=== PATIENT | male | born 2005 | race African-American/Black ===

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

== ENCOUNTER 2025-03-02 10:02 | Emergency (ER) | payer OTHER, SELFPAY ==
--- OUTSIDE RECORDS SUMMARY | 2025-03-02 10:06 | XMS_ITS | Clinical Summary ---
Author Organization [facility] [employer] Address [address] [place] [address] Care Team Providers Care Guide Winder Name Role Phone BrianamandaTyron short Primary Care Provider Source Comments [facility] [employer],non-owned Affiliates and Associated Physician Practices is amultiple site organization consisting of ambulatory clinics and hospital sitesin [place], [place], [place] and [place]. This disclosure is being madepursuant to the Care Everywhere program and may not contain all information available regarding this patient. Last updated 18.[employer] Allergies No known active allergies Medications * Be aware that medications may not be up to date on this document. Alwaysverify current medications with the patient. Other Mom unsure but last dose at 1400 Active fluticasone hfa 110 (FLOVENT HFA 110) 110 MCG/ACT inhaler Inhale 1 Puff by mouth 2 times daily. 1 Inhaler 5 3 Active Additional Information Patient not taking.Reported on 04/15/2020 albuterol (PROVENTIL;VENT BEBA) (5 MG/ML) 0.5% nebulizer solution Inhale 2.5 mg by mouth 4 times daily as needed for Shortness of Breath or Wheezing Active albuterol HFA (PROVENTIL;VENT BEBA;PROAIR) 108 (90 Base) MCG/ACT inhaler Inhale 2 puffs by mouth every 4 hours as needed for Wheezing or Cough OK TO SUBSTITUTE ANY BRAND. 1 Inhaler 0 Active Active Problems No known active problems Immunizations Immunization Administration Dates Next Due CovRegisterPatient primary Monoval ent 12+ yr 0.3ml 03/27/2022 DTP 04/02/2011, 7,2005,2005,2005 HEP A PEDS 2 DOSE 02/09/2008,06/18/2007 HEP B VACCINE, PED/ADOL 2005,2005, HIB-PRP-T 4 DOSE 12/23/2006, 6,2005,2004 Human Papilloma Virus [place] lent Vaccine 04/15/2020 INFLUENZA VACCINE 05/17/2016,08/04/2008,09/18/19 07 MENINGOCOCAL MENINGITIS 04/25/2017 MMR 04/02/2011,09/18/2006 POLIO IPV 04/02/2011, 6,2005,2004 Pneumococcal Pcv13 Conj 12/18/2015,09/18,2005,2004 TDAP (7yrs+) 04/24/2016 VARICELLA 04/02/2011,06/27/2006 Family History Medical History Relation Name Comments Eczema Father CAD (Coronary Artery Disease) Maternal Grandfather Hypertension Maternal Grandfather Hypertension Maternal Grandmother Eczema Mother High Cholesterol Paternal Grandmother Hypertension Paternal Grandmother Relation Name Status Comments Father Maternal Grandfather Maternal Grandmother Mother Paternal Grandmother Social History Tobacco Use Types Packs/Day Years Used Date Smoking Tobacco: Never Smokeless Tobacco: Never Tobacco Cessation:Counseling Given: No Alcohol Use Standard Drinks/Week Comments No 0 (1 standard drink = 0.6 oz pur e alcohol) Sex and Gender Information Value Date Recorded Sex Assigned at Not on file Legal Sex Male 5:59 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 Gender Identity Not on file Sexual Orientation Not on file Last Filed Vital Signs Vital Sign Reading Time Taken Comments Blood Pressure 100/62 04/19/2021 6:49 PM CDT Pulse 83 04/19/2021 6:49 PM CDT Temperature 36.8 C (98.2 F) 04/19/2021 6:49 PM CDT Respiratory Rate 17 04/19/2021 6:49 PM CDT Oxygen Saturation 99% 08/15/2017 6:47 PM CERTIFIED PHARMACY TECH Inhaled Oxygen Concentration - - Weight 79.4 kg (175 lb) 04/19/2021 6:49 PM CDT Height 172.7 cm (5' 8) 04/19/2021 6:49 PM CDT Body Mass Index 26.61 04/19/2021 6:49 PM CDT Body Mass Index Percentile 93.56% 04/19/2021 6:4 9 PM CDT Growth Chart: [facility] (Boys, 2-2 0 Years) Plan of Treatment Health Maintenance Due Date Last Done Comments HIV SCREENING 2020 HPV VACCINE (2 - Male 2-dose series) 10/16/2020 04/15/2020 MENINGOCOCCAL (Group B) VACCINE SHARED DECISION-MAKING (1 of 2 - Standard) 2021 HEPATITIS C SCREENING 06/12/2023 COVID-19 VACCINE (2 - season) 2024 03/27/2022 DEPRESSION SCREENING 08/26/2024 INFLUENZA VACCINE (Season Ended) 2025 05/17/2016, 08/04/2008, 09/18/2006 DTAP/TDAP/TD VACCINES (7 - Td or Tdap) 04/24/2026 04/24/2016, 04/02/2011, 12/23/2006, Additional history exists ZOSTER VACCINE (1 of 2) 2055 HEPATITIS B VACCINE Completed 2005, 2005, 2005 HIB VACCINE Completed 12/23/2006, 11/25, 2005, Additional history exists PNEUMOCOCCAL VACCINE Completed 12/18/2015, 09/18/2006, 2005, Additional history exists MENINGOCOCCAL GROUPS A/C/Y/W VACCINE Aged Out 04/25/2017 No longer eligible based on patient's age to complete this topic Insurance [facility] MEDICAID Care Teams Guide Winder Relationship Specialty Start Date End Date Tyron Dumont DO PCP - General Pediatrics 04/15/20
[2025-03-02 10:07] VITALS: BP 164/91; PULSE 99; RESP 15; TEMP 36.4; O2SAT 99
--- NOTE | 2025-03-02 10:43 | ED_ITS ---
HPI - Skin/Abscess/Foreign Bdy General Chief complaint: Skin/Abscess/Foreign Body Stated complaint: hives Time Seen by Provider: 03/02/25 10:28 Source: patient Mode of arrival: ambulatory Limitations: no limitations History of Present Illness HPI narrative: This is a 19 year old male that presents to the ER for hives. Started last night. Reports rash on the legs and abdomen. He also had some diarrhea yesterday. No known exposures. He took Benadryl prior to arrival with some relief in itchiness. Denies dysphagia, dyspnea, swelling of the mouth or tongue. Related Data Allergies Allergy/AdvReac Type Severity Reaction Status Date / Time No Known Allergies Allergy Unknown Verified 03/02/25 10:07 Review of Systems Review of Systems: All systems reviewed & are unremarkable except as noted in HPI and below PMFSH Past Medical History Medical History (Updated 03/02/25 @ 13:15 by Vashti Mars PA-C) History of asthma Exam Narrative: GENERAL: Well-appearing, well-nourished, and in no acute distress. HEAD: Normocephalic, atraumatic. EYES: EOMI. ENT: Nares clear, no rhinorrhea or epistaxis. Mucous membranes moist. Oropharynx without tonsillar hypertrophy exudate or other lesions. CHEST: Clear to auscultation. No respiratory distress. No wheezes rales or rhonchi HEART: Regular rate and rhythm. No murmur heard. Normal peripheral pulses. ABDOMEN: Soft, nontender, nondistended, normal active bowel sounds. EXTREMITIES: Normal range of motion. No edema. SKIN: Warm, dry. Hives on the trunk and proximal extremities NEURO: No focal deficits. Alert and oriented x3. PSYCH: Normal mood and affect Course Course Emergency Course: Patient feels much better at this time Vital Signs Vital signs: Vital Signs Temperature 97.5 F L 03/02/25 10:07 Pulse Rate 99 03/02/25 10:07 Respiratory Rate 15 03/02/25 10:07 Blood Pressure 164/91 H 03/02/25 10:07 Pulse Oximetry 99 03/02/25 10:07 Oxygen Delivery Room Air 03/02/25 10:07 Temperature 97.5 F L 03/02/25 10:07 Pulse Rate 71 03/02/25 12:54 Respiratory Rate 16 03/02/25 12:54 Blood Pressure 137/81 03/02/25 12:54 Pulse Oximetry 99 03/02/25 12:54 Oxygen Delivery Room Air 03/02/25 10:07 MDM - Skin/Abscess/Foreign Bdy MDM Narrative Medical decision making narrative: Patient presents to the emergency department for hives, ongoing since last night. Denies any dysphagia, dyspnea, no notable facial/mouth/throat swelling. Patient with improvement after Pepcid, Solu-Medrol. He had taken Benadryl prior to arrival. Instructed on continued used use of histamines. He is to follow up with PCP. He was given warnings to return to the ER Differential Diagnosis Differential diagnosis: Likely viral exanthem, urticaria, allergic reaction to drug and eczema Critical Care Time Critical Care Time Critical Care Time: No Discharge Plan Discharge Clinical Impression: Hives Patient Disposition: Home Condition: Improved Instructions: Urticaria (ED) Additional Instructions: Return to the emergency department if you experience fever, redness and swelling of your wounds, abnormal drainage from your wounds, or any other symptoms that are concerning to you Take a Pepcid and Zyrtec daily. Benadryl as needed for severe itching Follow-up with primary care doctor Patient Language: Citizen Of [place] Prescriptions: No Action ondansetron 4 mg tablet,disintegrating 4 mg PO Q6H PRN (Reason: nausea and vomiting) Qty: 6 0RF albuterol sulfate 90 mcg/actuation HFA aerosol inhaler 1 inh inhalation QID PRN (Reason: shortness of breath or wheezing) Qty: 6.7 0RF prednisone 20 mg tablet 40 mg PO DAILY Qty: 10 0RF ondansetron 4 mg tablet,disintegrating 4 mg PO Q8H PRN (Reason: nausea and vomiting) Qty: 10 0RF Follow-up/Referrals: PHYSICIAN,COMMERCIAL CONSTRUCTION ESTIMATOR [Primary Care Provider] - James Tate MD [Physician] -
--- OUTSIDE RECORDS SUMMARY | 2025-03-02 10:44 | XMS_ITS | Clinical Summary ---
Author Organization [facility] Address [address] [place] [address] Care Team Providers Care Truck Driver Heavy Name Role Phone BrianamandaTyron short Primary Care Provider Source Comments [facility],non-owned Affiliates and Associated Physician Practices is amultiple site organization consisting of ambulatory clinics and hospital sitesin [place], [place], [place] and [place]. This disclosure is being madepursuant to the Care Everywhere program and may not contain all information available regarding this patient. 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 Gender Identity Not on file Sexual Orientation Not on file Last Filed Vital Signs Vital Sign Reading Time Taken Comments Blood Pressure 100/62 04/19/2021 6:49 PM CDT Pulse 83 04/19/2021 6:49 PM CDT Temperature 36.8 C (98.2 F) 04/19/2021 6:49 PM CDT Respiratory Rate 17 04/19/2021 6:49 PM CDT Oxygen Saturation 99% 08/15/2017 6:47 PM SENIOR PUBLICATIONS SPECIALIST Inhaled Oxygen Concentration - - Weight 79.4 kg (175 lb) 04/19/2021 6:49 PM CDT Height 172.7 cm (5' 8) 04/19/2021 6:49 PM CDT Body Mass Index 26.61 04/19/2021 6:49 PM CDT Body Mass Index Percentile 93.56% 04/19/2021 6:4 9 PM CDT Growth Chart: [facility] (Boys, 2-2 0 Years) Plan of Treatment [...] patient's age to complete this topic Insurance [facility] MEDICAID Care Teams Truck Driver Heavy Relationship Specialty Start Date End Date Tyron Dumont DO PCP - General Pediatrics 04/15/20
[2025-03-02 11:24] VITALS: BP 124/68; PULSE 80; RESP 16; O2SAT 100
[2025-03-02] MEDS: FAMOTIDINE 20 MG/2 ML VIAL IV PUSH (11:31)
[2025-03-02] MEDS: DICYCLOMINE HCL INJ 20 MG/2 ML VIAL IM (12:53)
[2025-03-02 12:54] VITALS: BP 137/81; PULSE 71; RESP 16; O2SAT 99
[2025-03-02 13:24] VITALS: BP 128/60; PULSE 61; RESP 18; TEMP 36.7; O2SAT 98
== END 2025-03-02 13:25 | disposition home or self-care (01) ==
PROVIDERS: Emergency Provider Physician Assistant
DX: L50.9 Urticaria, unspecified (principal); J45.909 Unspecified asthma, uncomplicated
CPT/HCPCS: 96372; 96374; 96375; 99284; J0500; J2919

== ENCOUNTER 2025-03-05 16:17 | Emergency (ER) | payer OTHER, SELFPAY ==
--- OUTSIDE RECORDS SUMMARY | 2025-03-05 16:19 | XMS_ITS | Clinical Summary ---
Author Organization [facility] [employer] Address [address] [place] [address] Care Team Providers Care Flight Kitchen Manager Name Role Phone BrianamandaTyron short Primary Care Provider Source Comments [facility] [employer]non-owned Affiliates and Associated Physician Practices is amultiple site organization consisting of ambulatory clinics and hospital sitesin [place], [place] and [place]. This disclosure is being madepursuant to the Care Everywhere program and may not contain all information available regarding this patient. Last updated 18.[employer] 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 Gender Identity Not on file Sexual Orientation Not on file Last Filed Vital Signs Vital Sign Reading Time Taken Comments Blood Pressure 100/62 04/19/2021 6:49 PM CDT Pulse 83 04/19/2021 6:49 PM CDT Temperature 36.8 C (98.2 F) 04/19/2021 6:49 PM CDT Respiratory Rate 17 04/19/2021 6:49 PM CDT Oxygen Saturation 99% 08/15/2017 6:47 PM BOBBIN PAINTER Inhaled Oxygen Concentration - - Weight 79.4 kg (175 lb) 04/19/2021 6:49 PM CDT Height 172.7 cm (5' 8) 04/19/2021 6:49 PM CDT Body Mass Index 26.61 04/19/2021 6:49 PM CDT Body Mass Index Percentile 93.56% 04/19/2021 6:4 9 PM CDT Growth Chart: [facility] (Boys, 2-2 0 Years) Plan of Treatment Health Maintenance Due Date Last Done Comments HIV SCREENING 2020 HPV VACCINE (2 - Male 2-dose series) 10/16/2020 04/15/2020 MENINGOCOCCAL (Group B) VACCINE SHARED DECISION-MAKING (1 of 2 - Standard) 2021 HEPATITIS C SCREENING 06/12/2023 COVID-19 VACCINE (2 - season) 2024 03/27/2022 DEPRESSION SCREENING 08/26/2024 INFLUENZA VACCINE (#1) 2025 6, 08/04/2008, 09/18/2006 DTAP/TDAP/TD VACCINES (7 - Td [...] patient's age to complete this topic Insurance [facility] MEDICAID Care Teams Flight Kitchen Manager Relationship Specialty Start Date End Date Tyron Dumont DO PCP - General Pediatrics 04/15/20
[2025-03-05 16:20] VITALS: BP 167/113; PULSE 113; RESP 16; TEMP 36.4; O2SAT 97
--- NOTE | 2025-03-05 18:52 | PC.NURSE ---
Patient not found in lobby when called for 2 hour VS or for MSE.
--- OUTSIDE RECORDS SUMMARY | 2025-03-05 19:17 | XMS_ITS | Clinical Summary ---
Author Organization [facility] [employer] Address [address] [place] [address] Care Team Providers Care Regulatory Associate Name Role Phone BrianamandaTyron short Primary Care Provider Source Comments [facility] [employer],non-owned Affiliates and Associated Physician Practices is amultiple site organization consisting of ambulatory clinics and hospital sitesin [place], [place], [place] and [place]. This disclosure is being madepursuant to the Care Everywhere program and may not contain all information available regarding this patient. 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 Gender Identity Not on file Sexual Orientation Not on file Last Filed Vital Signs Vital Sign Reading Time Taken Comments Blood Pressure 100/62 04/19/2021 6:49 PM CDT Pulse 83 04/19/2021 6:49 PM CDT Temperature 36.8 C (98.2 F) 04/19/2021 6:49 PM CDT Respiratory Rate 17 04/19/2021 6:49 PM CDT Oxygen Saturation 99% 08/15/2017 6:47 PM OFFICE MANAGER Inhaled Oxygen Concentration - - Weight 79.4 kg (175 lb) 04/19/2021 6:49 PM CDT Height 172.7 cm (5' 8) 04/19/2021 6:49 PM CDT Body Mass Index 26.61 04/19/2021 6:49 PM CDT Body Mass Index Percentile 93.56% 04/19/2021 6:4 9 PM CDT Growth Chart: [facility] (Boys, 2-2 0 Years) Plan of Treatment [...] patient's age to complete this topic Insurance [facility] MEDICAID Care Teams Regulatory Associate Relationship Specialty Start Date End Date Tyrno Dumont DO PCP - General Pediatrics 04/15/20
== END 2025-03-05 18:52 | disposition left against medical advice (07) ==
LOC: ANHED 19:16
DX: R06.02 Shortness of breath (principal)
CPT/HCPCS: 99199

== ENCOUNTER 2025-03-07 11:10 | Emergency (ER) | payer OTHER, SELFPAY ==
--- NOTE | ~2025-03-07 | XR_ITS ---
Supine portable views of the abdomen Clinical history: Abdominal pain Findings: Single mildly dilated loop of small bowel present in the left lower quadrant, nonspecific. No evidence for obstruction or free air. No abnormal mass lesion or calcification is seen. Osseous st ructures are intact. Impression: Nonspecific bowel gas pattern overall, with single mildly dilated loop of small bowel in the left low er quadrant. Consider CT for further evaluation as indicated. Reviewed, dictated and finalized at location M. Impression: Nonspecific bowel gas pattern overall, with single mildly dilated loop of small bowel in the left lower quadrant. Consider CT for further evaluation as indica brooke.
--- NOTE | ~2025-03-07 | CT_ITS ---
CT abdomen pelvis w con Ordering provider: Zackery Martinez MD History: 19 years Male with . left sided abdominal pain . Comparison: October 23, 2023 Technique: CT abdomen and pelvis with IV and without oral contrast. Automated exposure control and it erative reconstruction technique were employed. The dose-length product was 482.20 mGy-cm. Findings: VISUALIZED LOWER CHEST: Left basilar atelectasis with trace of effusion. UPPER ABDOMINAL ORGANS: Liver: Normal. Gallbladder: Normal. Spleen: Multiple hypodensities in the spleen which are most likely infarcts versus posttraumatic trau matic hematomas. Clinical correlation advised.. Cysts , infection and metastatic lesions are less lik kobe. Stomach/duodenum: Normal. Pancreas: Normal. Adrenals: Normal. Kidneys: Normal. PELVIC ORGANS: The bladder is underfilled with slightly thickened wall. Evaluation for cystitis advis ed. BOWEL AND MESENTERY: Colon: No evidence of diverticulitis. Fluid is seen in the colon. Normal appendix. Small Bowel: Fluid seen in the distal small bowel. No obstruction. Peritoneum/mesentery: No free air or free fluid. No mesenteric lymphadenopathy. Lymph nodes are seen with the largest on the right side measures 3.5 cm and on the left 3.8 cm. RETROPERITONEUM: Normal aorta. No retroperitoneal lymphadenopathy. MUSCULOSKELETAL: Superficial soft tissues: Inguinal enlarged lymph nodes are seen with the largest on the right side m easures 2.6 cm and on the left measures 1.7 cm. Otherwise, The superficial soft tissues are normal. Bones: Age appropriate degenerative changes of the spine. IMPRESSION: 1. Multiple hypodensities in the spleen which are most likely infarcts. Other differential include i nfection, metastases, posttraumatic traumatic hematomas and metastatic lesions. Clinical correlation and follow-up advised. 2. Fluid in the large and distal small bowel which may indicate diarrhea. 3. No evidence of appendicitis, diverticulitis or intestinal obstruction. 4. Bilateral inguinal and iliac lymphadenopathy. Reviewed, dictated and finalized at location A. IMPRESSION: 1. Multiple hypodensities in the spleen which are most likely infarcts. Other differential include infection, metastases, posttraumatic traumatic hematomas a nd metastatic lesions. Clinical correlation and follow-up advised. 2. Fluid in the large and distal small bowel which may indicate diarrhea. 3. No evidence of appendicitis, diverticulitis or intestinal obstruction. 4. Bilateral inguinal and iliac lymphadenopathy.
[2025-03-07 11:13] VITALS: BP 138/69; PULSE 114; RESP 18; TEMP 36.4; O2SAT 98
--- OUTSIDE RECORDS SUMMARY | 2025-03-07 11:13 | XMS_ITS | Clinical Summary ---
Author Organization [facility] [employer] Address [address] [place] [address] Care Team Providers Care Wing Mailer Machine Operator Name Role Phone BrianamandaTyron short Primary Care Provider Source Comments [facility] [employer],non-owned Affiliates and Associated Physician Practices is amultiple site organization consisting of ambulatory clinics and hospital sitesin [place], [place], [place] and [place]. This disclosure is being madepursuant to the Care Everywhere program and may not contain all information available regarding this patient. 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 Gender Identity Not on file Sexual Orientation Not on file Last Filed Vital Signs Vital Sign Reading Time Taken Comments Blood Pressure 100/62 04/19/2021 6:49 PM CDT Pulse 83 04/19/2021 6:49 PM CDT Temperature 36.8 C (98.2 F) 04/19/2021 6:49 PM CDT Respiratory Rate 17 04/19/2021 6:49 PM CDT Oxygen Saturation 99% 08/15/2017 6:47 PM DIRECTOR PRODUCT SAFETY Inhaled Oxygen Concentration - - Weight 79.4 [...] patient's age to complete this topic Insurance [facility] MEDICAID Care Teams Wing Mailer Machine Operator Relationship Specialty Start Date End Date Tyron Dumont DO PCP - General Pediatrics 04/15/20
[2025-03-07 13:05] VITALS: BP 138/80; PULSE 102; RESP 15; TEMP 36.9; O2SAT 99
[2025-03-07 13:22] VITALS: BP 129/73; PULSE 99; RESP 14; O2SAT 99
--- OUTSIDE RECORDS SUMMARY | 2025-03-07 13:28 | XMS_ITS | Clinical Summary ---
Author Organization [facility] [employer] Address [address] [place] [address] Care Team Providers Care Branch Operation Evaluation Manager Name Role Phone BrianamandaTyron short Primary Care Provider Source Comments [facility] [employer],non-owned Affiliates and Associated Physician Practices is amultiple site organization consisting of ambulatory clinics and hospital sitesin [place], [place], [place] and [place]. This disclosure is being madepursuant to the Care Everywhere program and may not contain all information available regarding this patient. Last updated [email or web address] Allergies No known active allergies Medications * [...] problems Immunizations Immunization Administration Dates Next Due [employer] 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 Gender Identity Not on file Sexual Orientation Not on file Last Filed Vital Signs Vital Sign Reading Time Taken Comments Blood Pressure 100/62 04/19/2021 6:49 PM CDT Pulse 83 04/19/2021 6:49 PM CDT Temperature 36.8 C (98.2 F) 04/19/2021 6:49 PM CDT Respiratory Rate 17 04/19/2021 6:49 PM CDT Oxygen Saturation 99% 08/15/2017 6:47 PM ACCOUNTING CLERKS SUPERVISOR Inhaled Oxygen Concentration - - Weight 79.4 kg (175 lb) 04/19/2021 6:49 PM CDT Height 172.7 cm (5' 8) 04/19/2021 6:49 PM CDT Body Mass Index 26.61 04/19/2021 6:49 PM CDT Body Mass Index Percentile 93.56% 04/19/2021 6:4 9 PM CDT Growth Chart: [facility] (Boys, 2-2 0 Years) Plan of Treatment [...] patient's age to complete this topic Insurance [facility] MEDICAID Care Teams Branch Operation Evaluation Manager Relationship Specialty Start Date End Date Tyron Dumont DO PCP - General Pediatrics 04/15/20
[2025-03-07 13:34] LABS: Hematocrit 45.6 % (42.0-52.0); Hemoglobin 15.8 g/dL (14.0-18.0); Immature Granulocyte Percent A 1.7 % (0-0.5); Lymphocytes Absolute Auto 6.74 K/mm3 (0.9-3.2); Mean Corpuscular HGB Conc 34.6 g/dl (32-36); Mean Corpuscular Hemoglobin 27.5 pg (26-34); Mean Corpuscular Volume 79.4 fl (80-100); Nucleated Red Blood Cells Absolute Auto 0.000 K/mm3 (0.0-0.012); Nucleated Red Blood Cells Perc 0.0 % (0.0-0.2); Platelet Count Result 278 k/mm3 (150-375); Red Blood Count 5.74 M/mm3 (4.6-6.20); White Blood Count 13.3 K/mm3 (4.5-10.0)
[2025-03-07] MEDS: SODIUM CHLORIDE 0.9% IV 1,000 ML 999 ML IV CONT (13:34)
[2025-03-07] MEDS: ONDANSETRON INJ 4 MG/2 ML VIAL IV PUSH (13:34)
[2025-03-07 13:42] LABS: Alanine Aminotransferase 37 U/L (6-50); Albumin Level 4.4 g/dL (3.7-5.6); Alkaline Phosphatase 62 U/L (58-237); Anion Gap 10 mmol/L (4-12); Aspartate Amino Transferase 46 U/L (17-59); Bilirubin,Total 1.3 mg/dL (0.2-1.3); Blood Urea Nitrogen 11 mg/dL (8-21); Calcium 8.9 mg/dL (8.9-10.7); Carbon Dioxide 29 mmol/L (22-30); Chloride 97 mmol/L (98-107); Estimated CRCL calculation 107 ml/min; Estimated Glomerular Filt Rate > 60; Glucose 110 mg/dL (65-110); Lipase 58 U/L (23-300); Potassium 4.0 mmol/L (3.4-5.0); Sodium 136 mmol/L (134-143); Total Protein 8.8 g/dL (6.3-8.6)
[2025-03-07 13:57] LABS: Add Urine Microscopic? YES; Appearance Urine Clear (Clear); Glucose Urine UA Negative (Negative); Leukocyte Esterase Ur 1+ LEU/UL (Negative); Need Manual Microscopic Reviewed; Nitrate Urine Negative (Negative); Non Pathogenic Casts 0-2; Specific Grav Ur 1.024 (1.001-1.035)
[2025-03-07 13:58] LABS: Schistocytes None Seen
--- NOTE | 2025-03-07 14:42 | ED_ITS ---
HPI - General Adult General Chief complaint: Abdominal Pain Stated complaint: constipated Time Seen by Provider: 03/07/25 13:11 History of Present Illness HPI narrative: Patient is an 19-year-old male who presents ER with abdominal pain. Epigastric and left-sided. Was seen at [facility] earlier in the week and diagnosed with constipation no appendix issues on CT. He is tried an enema without improvement. He has taken magnesium citrate only vomited. No fevers or chills. Pain is worse with physical movement. No previous abdominal surgeries. Related Data Allergies Allergy/AdvReac Type Severity Reaction Status Date / Time No Known Allergies Allergy Unknown Verified 03/07/25 13:11 Review of Systems 2 Review of Systems: All systems reviewed & are unremarkable except as noted in HPI and below Constitutional: Constitutional: Reports no additional constitutional complaints Cardiovascular: Cardiovascular: Reports no additional cardiovascular complaints Respiratory: Respiratory: Reports no additional respiratory complaints Gastrointestinal: Gastrointestinal: Reports no additional gastrointestinal complaints Musculoskeletal: Musculoskeletal: Reports no additional musculoskeletal complaints [facility] Past Medical History Medical History (Updated 03/07/25 @ 17:01 by Zackery Martinez MD) History of asthma Exam 2 Narrative: GENERAL: Well-appearing, well-nourished, and in no acute distress. HEAD: Normocephalic, atraumatic. ENT: Mucous membranes moist. CHEST: Clear to auscultation. No respiratory distress. HEART: Regular rate and rhythm. Normal peripheral pulses. ABDOMEN: Soft, moderate tenderness left mid upper abdomen. Nondistended. EXTREMITIES: Normal range of motion. No edema. SKIN: Warm, dry, no rash. NEURO: Alert and oriented x3. PSYCH: Normal mood and affect. Course Course Emergency Course: Patient informed of results resting comfortably. Diagnosed with mononucleosis. CT scan with abnormal spleen that may indicate infarct versus infection. I did call the radiologist and feels that the vascular flow looked appropriate and mononucleosis make sense for the abnormal appearance. After discussing this with the patient he reports he did have the same abnormality on a CT scan earlier this week but he did not remember originally. They thought it may have been the result of trauma from playing football in the past. Vital Signs Vital signs: Vital Signs Temperature 97.6 F 03/07/25 11:13 Pulse Rate 114 H 03/07/25 11:13 Respiratory Rate 18 03/07/25 11:13 Blood Pressure 138/69 03/07/25 11:13 Pulse Oximetry 98 03/07/25 11:13 Oxygen Delivery Room Air 03/07/25 11:13 Temperature 98.4 F 03/07/25 13:05 Pulse Rate 95 03/07/25 15:41 Respiratory Rate 17 03/07/25 15:41 Blood Pressure 128/57 L 03/07/25 15:41 Pulse Oximetry 97 03/07/25 15:41 Oxygen Delivery Room Air 03/07/25 13:05 Medical Decision Making Vital Signs Vital Signs: Vital Signs Temperature 97.6 F 03/07/25 11:13 Pulse Rate 114 H 03/07/25 11:13 Respiratory Rate 18 03/07/25 11:13 Blood Pressure 138/69 03/07/25 11:13 Pulse Oximetry 98 03/07/25 11:13 Oxygen Delivery Room Air 03/07/25 11:13 Temperature 98.4 F 03/07/25 13:05 Pulse Rate 95 03/07/25 15:41 Respiratory Rate 17 03/07/25 15:41 Blood Pressure 128/57 L 03/07/25 15:41 Pulse Oximetry 97 03/07/25 15:41 Oxygen Delivery Room Air 03/07/25 13:05 Lab Data 03/07/25 13:24 03/07/25 13:24 Labs: Lab Results 03/07/25 Range/Units 13:24 WBC 13.3 H (4.5-10.0) K/mm3 RBC 5.74 (4.6-6.20) M/mm3 Hgb 15.8 (14.0-18.0) g/dL Hct 45.6 (42.0-52.0) % MCV 79.4 L (80-100) fl MCH 27.5 (26-34) pg MCHC 34.6 (32-36) g/dl RDW 12.9 (11.5-14.5) % Plt Count 278 (150-375) k/mm3 MPV 9.8 (7.4-10.4) fl Immature Gran % (Auto) 1.7 H (0-0.5) % Neut % (Auto) 36.6 L (45.5-73.1) % Lymph % (Auto) 50.5 H (18.3-44.2) % [place] % (Auto) 10.0 H (2.6-8.5) % Eos % (Auto) 0.2 (0-4.4) % Baso % (Auto) 1.0 (0.2-1.2) % Lymph # (Auto) 6.74 H (0.9-3.2) K/mm3 [place] # (Auto) 1.3 H (0.1-0.6) K/mm3 Eos # (Auto) 0.0 (0-0.3) K/mm3 Baso # (Auto) 0.1 (0.0-0.1) K/mm3 Abs Immat Gran (auto) 0.23 H (0.00-0.031) K/mm3 Absolute Neuts (auto) 4.9 (1.3-6.7) K/mm3 Absolute Nucleated RBC 0.000 (0.0-0.012) K/mm3 Band Neutrophils % Not Reportable Nucleated RBC % 0.0 (0.0-0.2) % Atypical Lymphocytes Present Platelet Estimate Adequate (Adequate) Schistocytes None seen Sodium 136 (134-143) mmol/L Potassium 4.0 (3.4-5.0) mmol/L Chloride 97 L (98-107) mmol/L Carbon Dioxide 29 (22-30) mmol/L Anion Gap 10 (4-12) mmol/L BUN 11 (8-21) mg/dL Creatinine 1.12 (0.7-1.3) mg/dL Estim Creat Clear Calc 107 ml/min Estimated GFR > 60 (59 - ) Glucose 110 (65-110) mg/dL Calcium 8.9 (8.9-10.7) mg/dL Total Bilirubin 1.3 (0.2-1.3) mg/dL AST 46 (17-59) U/L ALT 37 (6-50) U/L Alkaline Phosphatase 62 (58-237) U/L Total Protein 8.8 H (6.3-8.6) g/dL Albumin 4.4 (3.7-5.6) g/dL Lipase 58 (23-300) U/L Urine Color Dark yellow (Yellow) Urine Appearance Clear (Clear) Urine pH 6.0 (5.0-9.0) Ur Specific [place] 1.024 (1.001-1.035) Urine Protein 1+ H (Negative) mg/dL Urine Glucose (UA) Negative (Negative) mg/dL Urine Ketones Trace H (Negative) mg/dL Ur Blood (Man) Negative (Negative) Urine Nitrate Negative (Negative) Urine Bilirubin Negative (Negative) Urine Urobilinogen 1.0 (<2.0) mg/dL Add Ur Microanalysis Reviewed Leukocyte Esterase Rfl 1+ H (Negative) ABBY/UL Urine RBC 3-5 H (0-2) /hpf Urine WBC 0-5 (0-3) /hpf Ur Squamous Epith Cells None seen (Few) /hpf Urine Bacteria None seen /hpf Urine Casts 0-2 Monoscreen Positive A (Negative) Imaging Data Radiologist's impression: ITS Impressions Abdomen X-Ray 03/07/25 14:00 Impression: Nonspecific bowel gas pattern overall, with single mildly dilated loop of small bowel in the left lower quadrant. Consider CT for further evaluation as indicated. Abdomen/Pelvis CT 03/07/25 16:20 IMPRESSION: 1. Multiple hypodensities in the spleen which are most likely infarcts. Other differential include infection, metastases, posttraumatic traumatic hematomas and metastatic lesions. Clinical correlation and follow-up advised. 2. Fluid in the large and distal small bowel which may indicate diarrhea. 3. No evidence of appendicitis, diverticulitis or intestinal obstruction. 4. Bilateral inguinal and iliac lymphadenopathy. Discharge Plan Discharge Clinical Impression: Mononucleosis, Splenic disease Patient Disposition: Home Condition: Stable Instructions: Mononucleosis (ED) Additional Instructions: Return to the emergency department if you develop severe abdominal pain, severe nausea and vomiting to the point where you are unable to keep down fluids, if you develop chest pain or difficulty breathing, blood in your stool, dizziness or fainting, or if you develop any other new or concerning symptoms as these could be signs of more serious medical illness. Try to stay well hydrated. Patient Language: Sinhala Prescriptions: New hydrocodone-acetaminophen 5-325 mg tablet 1 tablet PO Q6H PRN (Reason: pain) Qty: 20 0RF docusate sodium [Colace] 100 mg capsule 100 mg PO DAILY Qty: 14 0RF No Action ondansetron 4 mg tablet,disintegrating 4 mg PO Q6H PRN (Reason: nausea and vomiting) Qty: 6 0RF albuterol sulfate 90 mcg/actuation HFA aerosol inhaler 1 inh inhalation QID PRN (Reason: shortness of breath or wheezing) Qty: 6.7 0RF prednisone 20 mg tablet 40 mg PO DAILY Qty: 10 0RF ondansetron 4 mg tablet,disintegrating 4 mg PO Q8H PRN (Reason: nausea and vomiting) Qty: 10 0RF Follow-up/Referrals: Harish Puga MD [Physician] - PHYSICIAN,CIVIL DEFENSE DIRECTOR [Primary Care Provider] -
[2025-03-07 15:41] VITALS: BP 128/57; PULSE 95; RESP 17; O2SAT 97
[2025-03-07 16:26] LABS: Negative Monotest Control Negative (Negative); Positive Monotest Control Positive (Positive)
[2025-03-07 17:19] VITALS: BP 115/53; PULSE 20; RESP 20; TEMP 37; O2SAT 99
== END 2025-03-07 17:21 | disposition home or self-care (01) ==
PROVIDERS: Emergency Provider Emergency Medicine
DX: B27.90 Infectious mononucleosis, unspecified without complication (principal); D73.9 Disease of spleen, unspecified; J45.909 Unspecified asthma, uncomplicated
CPT/HCPCS: 36415; 74018; 74177; 80053; 81001; 83690; 85025; 86308; 87086; 96361; 96374; 99284; J2405; J7030; Q9967